=== PATIENT | female | born 1945 | race African-American/Black ===

== ENCOUNTER 2024-12-07 13:04 | Inpatient (IN) | payer MEDICARE, MEDICAID ==
[~2024-12-07] VITALS: Ht 175.3 cm; Wt 98.0 kg
[~2024-12-07 13:04] MED LIST: AMLO-258 PO; ASPI-1450 PO; CHLO473M6 PO; CHOL25TA4 PO; DICL100G60 TP; DIVA-112 PO; DOCU-385 PO; FAMO20 PO; GABA-1216 PO; LACT1CAP70 PO; LEVO88TA4 PO; LIDO-57 TD; LOSA-381 PO; MELA3TAB89 PO; MEMA10TA24 PO; METO-408 PO; OLAN2.5T78 PO; ONDA-104 PO; POLY17PO47 PO; POTA-92 PO; QUET25TA PO; SENN-376 PO; TRAM50TA5 PO; TRAZ-252 PO
[2024-12-07] MEDS ORDERED: QUET25TA PO (14:33)
[2024-12-07] MEDS ORDERED: LORazepam 1 MG TABLET PO PRN (16:00)
[2024-12-07] MEDS ORDERED: haloperidoL 5 MG TABLET PO PRN (16:00)
[2024-12-07] MEDS ORDERED: ZOLPIDEM TARTRATE 10 MG TABLET PO PRN (16:00)
[2024-12-07] MEDS: MELATONIN 5 MG TABLET PO SCH (21:00)
[2024-12-07] MEDS: TraZODone HCL 50 MG TABLET PO SCH (21:00)
[2024-12-07] MEDS: QUEtiapine FUMARATE 25 MG TABLET PO SCH (21:00)
[2024-12-07 22:43] VITALS: BP 145/92; PULSE 75; RESP 17; TEMP 97.4; O2SAT 97
[2024-12-08] MEDS ORDERED: TraMADol HCL 50 MG TABLET PO PRN (08:00)
[2024-12-08] MEDS: LIDOCAINE 5% TRANSDERMAL PATCH TD SCH (09:00)
[2024-12-08 09:26] VITALS: RESP 18
[2024-12-08 10:00] VITALS: BP 132/77; PULSE 69; RESP 20; TEMP 97.9; O2SAT 99
[2024-12-08] MEDS: CHLORHEXIDINE GLUCONATE 0.12% 15 ML UDCUP ORAL RINSE PO SCH (10:04)
[2024-12-08] MEDS: GABAPENTIN 100 MG CAPSULE PO SCH (10:05)
[2024-12-08] MEDS: POTASSIUM CHLORIDE 10 MEQ ER TABLET PO SCH (10:05)
[2024-12-08] MEDS: MEMANTINE HCL 10 MG TABLET PO SCH (10:05)
[2024-12-08] MEDS: POLYETHYLENE GLYCOL 3350 17 GM PACKET PO SCH (10:06)
[2024-12-08] MEDS: LACTOBACILLUS ACIDOPHILUS/BULGARICUS TABLET PO SCH (10:06)
[2024-12-08] MEDS: SENNOSIDES 8.6 MG TABLET PO SCH (10:09)
[2024-12-08] MEDS: CHOLECALCIFEROL (VIT D3) 1,000 UNITS [25 MCG] TABLET PO SCH (10:09)
[2024-12-08] MEDS: DOCUSATE SODIUM 100 MG CAPSULE PO SCH (10:09)
[2024-12-08] MEDS: ASPIRIN 81 MG CHEWABLE TABLET PO SCH (10:09)
[2024-12-08] MEDS: DICLOFENAC SODIUM 1% 100 GM GEL [2GM] TP SCH (10:11)
[2024-12-08] MEDS: AmLODIPine BESYLATE 10 MG TABLET PO SCH (10:27)
[2024-12-08] MEDS: METOPROLOL SUCCINATE 25 MG ER TABLET PO SCH (10:27)
[2024-12-08] MEDS: LOSARTAN POTASSIUM 25 MG TABLET PO SCH (10:30)
[2024-12-08] MEDS ORDERED: LOPERAMIDE HCL 2 MG CAPSULE PO PRN (18:30)
[2024-12-08] MEDS ORDERED: ALBUTEROL SULFATE HFA 90 MCG/PUFF 8 GM INHALER IH PRN (18:30)
[2024-12-08] MEDS ORDERED: MAG HYDROX/ALUMINUM HYD/SIMETH ES 30 ML SUSPENSION UDCUP PO PRN (18:30)
[2024-12-08] MEDS ORDERED: PETROLATUM,WHITE 28 GM JELLY TP PRN (18:30)
[2024-12-08] MEDS ORDERED: MAGNESIUM HYDROXIDE SUSPENSION 30 ML UDCUP PO PRN (18:30)
[2024-12-08] MEDS ORDERED: GuaiFENesin/D-METHORPHAN [SUGAR-FREE] 200-20MG/10 ML SYRUP UDCUP PO PRN (18:30)
[2024-12-08] MEDS ORDERED: ACETAMINOPHEN 325 MG TABLET PO PRN (18:30)
[2024-12-08] MEDS ORDERED: DOCUSATE SODIUM 100 MG CAPSULE PO PRN (18:30)
[2024-12-08] MEDS ORDERED: IBUPROFEN 400 MG TABLET PO PRN (18:30)
[2024-12-08] MEDS ORDERED: NICOTINE 14 MG/24 HOUR PATCH TD PRN (18:30)
[2024-12-08] MEDS ORDERED: ONDANSETRON 4 MG TABLET PO PRN (18:30)
[2024-12-08] MEDS: FAMOTIDINE 20 MG TABLET PO SCH (20:50)
[2024-12-08] MEDS: -LIDODERM PATCH NOTE- MISC SCH (20:56)
[2024-12-08 21:01] VITALS: RESP 18
[2024-12-09] MEDS: LEVOTHYROXINE SODIUM 88 MCG TABLET PO SCH (06:25)
[2024-12-09] MEDS ORDERED: LEVOTHYROXINE SODIUM 88 MCG TABLET PO SCH (07:00)
[2024-12-09 08:49] LABS: BASOPHILS % (AUTO) 0.7 % (0.0-2.0); EOSINOPHILS % (AUTO) 8.1 % (1.0-6.0); HEMATOCRIT 35.4 % (36-46); HEMOGLOBIN 11.5 g/dL (12.0-16.0); LYMPHOCYTES # (AUTO) 1.8 K/uL (1.0-4.8); LYMPHOCYTES % (AUTO) 37.5 % (22.0-44.0); MEAN CORPUSCULAR HEMOGLOBIN 29.8 pg (26.0-34.0); MEAN CORPUSCULAR HGB CONC 32.5 G/dL (31.0-37.0); MEAN CORPUSCULAR VOLUME 92 fL (80-100); MONOCYTES # (AUTO) 0.7 K/uL (0.1-1.0); MONOCYTES % (AUTO) 15.1 % (2.0-9.0); NEUTROPHILS # (AUTO) 1.9 K/uL (1.8-7.7); NEUTROPHILS % (AUTO) 38.6 % (40.0-70.0); PLATELET COUNT (AUTO) 208 K/uL (150-450); RED BLOOD CELL COUNT(AUTO) 3.87 MIL/uL (4.00-5.20); RED CELL DISTRIBUTION WIDTH 15.3 % (11.5-14.5); WHITE BLOOD COUNT (AUTO) 4.8 K/uL (4.5-11.0)
[2024-12-09] MEDS ORDERED: AmLODIPine BESYLATE 10 MG TABLET PO SCH (09:00)
[2024-12-09] MEDS ORDERED: METOPROLOL SUCCINATE 25 MG ER TABLET PO SCH (09:00)
[2024-12-09] MEDS ORDERED: POLYETHYLENE GLYCOL 3350 17 GM PACKET PO SCH (09:00)
[2024-12-09] MEDS ORDERED: ASPIRIN 81 MG CHEWABLE TABLET PO SCH (09:00)
[2024-12-09] MEDS ORDERED: CHOLECALCIFEROL (VIT D3) 1,000 UNITS [25 MCG] TABLET PO SCH (09:00)
[2024-12-09] MEDS ORDERED: MEMANTINE HCL 10 MG TABLET PO SCH (09:00)
[2024-12-09 09:16] LABS: HEMOGLOBIN A1C 5.5 % (3.8-5.6)
[2024-12-09 09:27] LABS: THYROID STIMULATING HORMONE 3.58 uIU/mL (0.36-3.74)
[2024-12-09 10:24] LABS: CHOL/HDL RATIO 1.7 (3.9-5.7)
[2024-12-09 10:33] VITALS: BP 106/60; PULSE 75; RESP 18; TEMP 98; O2SAT 99
[2024-12-09 21:45] VITALS: TEMP 97
[2024-12-10] MEDS: ONDANSETRON 4 MG TABLET PO PRN (06:17)
[2024-12-10 08:33] VITALS: RESP 18
[2024-12-10 20:40] VITALS: RESP 18
[2024-12-11 22:35] VITALS: BP 93/51; PULSE 60; RESP 18; TEMP 98; O2SAT 97
[2024-12-12 10:42] VITALS: RESP 16
[2024-12-12 20:59] VITALS: BP 128/67; PULSE 68; RESP 18; TEMP 98.2; O2SAT 97
[2024-12-13 08:00] VITALS: BP 127/78; PULSE 72; RESP 16; TEMP 98.2; O2SAT 99
[2024-12-13 08:05] VITALS: BP 127/78; PULSE 72; RESP 18; TEMP 98.2; O2SAT 99
[2024-12-13] MEDS ORDERED: MELA5TAB40 PO (15:47)
[2024-12-13] MEDS ORDERED: LIDO-57 TP (15:47)
== END 2024-12-13 18:43 | DRG 885 ==
LOC: 3EX 22:56
PROVIDERS: ADMIT Psychiatry & Neurology Psychiatry; ATTEND Psychiatry & Neurology Psychiatry
PROC: GZHZZZZ Group Psychotherapy (ICD-10-PCS; principal; 2024-12-08)
PROC: GZ52ZZZ Individual Psychotherapy, Cognitive (ICD-10-PCS; 2024-12-08)
DX: F25.1 Schizoaffective disorder, depressive type (principal); F03.918 Unspecified dementia, unspecified severity, with other behavioral disturbance; E11.9 Type 2 diabetes mellitus without complications; I10 Essential (primary) hypertension; G40.909 Epilepsy, unspecified, not intractable, without status epilepticus; E03.9 Hypothyroidism, unspecified; Z68.31 Body mass index [BMI] 31.0-31.9, adult; K21.9 Gastro-esophageal reflux disease without esophagitis; F41.9 Anxiety disorder, unspecified; R62.7 Adult failure to thrive; G47.00 Insomnia, unspecified; Z88.5 Allergy status to narcotic agent; Z79.899 Other long term (current) drug therapy; Z86.73 Personal history of transient ischemic attack (TIA), and cerebral infarction without residual deficits; Z91.148 Patient's other noncompliance with medication regimen for other reason
CPT/HCPCS: 80061; 83036; 84443; 85025; G0378; Q0162